=== PATIENT | female | born 1995 | race Caucasian/White ===

== ENCOUNTER 2017-04-23 23:41 | Emergency (ER) | payer SELFPAY ==
[2017-04-23] MEDS ORDERED: Phenazopyridine 200 MG Tab PO ONE (23:52)
[2017-04-23] MEDS ORDERED: Cephalexin 500 MG Cap PO ONE (23:52)
--- NOTE | 2017-04-23 23:52 | EDM.PDOC ---
ED HPI GENERAL MEDICAL PROBLEM - General Stated Complaint: PT HAS UTI Time Seen by Provider: 04/23/17 23:47 Source of Information: Reports: Patient History Limitations: Reports: No Limitations - History of Present Illness INITIAL COMMENTS - FREE TEXT/NARRATIVE: HISTORY AND PHYSICAL: History of present illness: 21-year-old female complaining of frequency urgency and dysuria. No fevers chills sweats or shaking chills. No flank pain. Denies pelvic pain she states she's never had a urinary tract infection before but she thinks she has one now patient is otherwise asymptomatic [] Review of systems: As per history of present illness and below otherwise all systems reviewed and negative. Past medical history: As per history of present illness and as reviewed below otherwise noncontributory. Surgical history: As per history of present illness and as reviewed below otherwise noncontributory. Social history: No reported history of drug or alcohol abuse. Family history: As per history of present illness and as reviewed below otherwise noncontributory. Physical exam: Well. Patient no acute distress benign abdomen and pelvis no CVA tenderness no clinical fever HEENT: Atraumatic, normocephalic, pupils reactive, negative for conjunctival pallor or scleral icterus, mucous membranes moist, throat clear, neck supple, nontender, trachea midline. Lungs: Clear to auscultation, breath sounds equal bilaterally, chest nontender. Heart: S1S2, regular, negative for clicks, rubs, or JVD. Abdomen: Soft, nondistended, nontender. Negative for masses or hepatosplenomegaly. Negative for costovertebral tenderness. Pelvis: Stable nontender. Genitourinary: Deferred. Rectal: Deferred. Extremities: Atraumatic, negative for cords or calf pain. Neurovascular unremarkable. Neuro: Awake, alert, oriented. Exam nonfocal. Diagnostics: [] Therapeutics: Keflex given by mouth] Impression: [UTI] Plan: [Signs and symptoms consistent with UTI. Clinical diagnosis. No evidence of pyelonephritis or systemic illness. Patient denies vaginal discharge or bleeding. She has an IUD in place. No further workup or treatment indicated. Thus of Keflex given in ED and prescription dispensed as well as peridium. Patient and mom agree with outpatient follow-up and strict return precautions given] Definitive disposition and diagnosis as appropriate pending reevaluation and review of above. Lower Back Pain Score (Numeric/FACES): 9 - Related Data Allergies Allergy/AdvReac Type Severity Reaction Status Date / Time No Known Allergies Allergy Verified 04/23/17 23:50 Home Meds: Home Meds Cephalexin [Keflex] 500 mg PO QID 5 Days 04/23/17 [Rx] Phenazopyridine HCl [Pyridium] 200 mg PO TID #6 tablet 04/23/17 [Rx] ED ROS GENERAL - Review of Systems Review Of Systems: See Below (History of present illness) ED EXAM, GENERAL - Physical Exam Exam: See Below (History of present illness) Course - Vital Signs Last Recorded V/S: Last Vital Signs Temp 36.4 C 04/23/17 23:46 Pulse 80 04/24/17 00:25 Resp 18 04/24/17 00:25 BP 121/73 04/24/17 00:25 Pulse Ox 98 04/24/17 00:25 - Orders/Labs/Meds Meds: Medications Discontinued Medications Generic Name Dose Route Start Last Admin Trade Name Moni PRN Reason Stop Dose Admin Cephalexin 500 mg 04/23/17 23:52 04/24/17 00:08 Keflex PO 04/23/17 23:53 500 mg ONETIME ONE Administration Phenazopyridine HCl 200 mg 04/23/17 23:52 04/24/17 00:08 Pyridium PO 04/23/17 23:53 200 mg ONETIME ONE Administration Departure - Departure Time of Disposition: 23:54 Disposition: Home, Self-Care 01 Condition: Good Clinical Impression: UTI (urinary tract infection), Dysuria - Discharge Information Prescriptions: Cephalexin [Keflex] 500 mg PO QID 5 Days Phenazopyridine HCl [Pyridium] 200 mg PO TID #6 tablet Instructions: Urinary Tract Infection, Adult, [id number] Referrals: PCP,None [Primary Care Provider] - Forms: ED Department Discharge Additional Instructions: You have a urinary tract infection based on your clinical symptoms. Frequency urgency, and pain with urinating, are classic symptoms of urine infection. As you have no fevers or fast heart rate in your not vomiting you have no clinical signs of kidney infection. Rest and drink plenty of fluids. Finish Keflex as prescribed. Take Pyridium for 6 doses as instructed. Peridium will help with the burning and discomfort of urinary tract infection. Follow-up with your DrRosalva in one to 2 days and return immediately for new severe or worsening symptoms which could represent treatment failure.
[2017-04-24 00:45] VITALS: BP 121/73
== END 2017-04-24 00:27 | disposition home or self-care (01) ==
LOC: MW.ED 23:41
DX: N39.0 Urinary tract infection, site not specified (principal)
CPT/HCPCS: 99283; A9270

== ENCOUNTER 2022-01-01 16:43 | Emergency (ER) | payer MEDICAID ==
[2022-01-01] MEDS ORDERED: Lidocaine 1% PF 2 ML SDV INJECT ONE (18:24)
[2022-01-01] MEDS ORDERED: Cephalexin 500 MG Cap PO ONE (18:25)
[2022-01-01] MEDS ORDERED: Diphtheria,Pertussis(Acell),Tetanus Vaccine 0.5 ML Syringe IM ONE (18:25)
[2022-01-01] MEDS ORDERED: traMADol 50 MG Tab PO ONE (18:36)
[2022-01-01] MEDS ORDERED: Sulfamethoxazole/Trimethoprim 800-160 MG Tab PO ONE (18:38)
[2022-01-01 19:11] VITALS: BP 124/86; PULSE 76
== END 2022-01-01 19:12 | disposition home or self-care (01) ==
LOC: MW.ED 16:43
DX: L73.9 Follicular disorder, unspecified (principal); L02.416 Cutaneous abscess of left lower limb
CPT/HCPCS: 10060; 99282; A9270

== ENCOUNTER 2022-06-16 16:16 | Emergency (ER) | payer MEDICAID ==
[2022-06-16] MEDS ORDERED: Lidocaine 1% PF 2 ML SDV INJECT ONE (18:05)
[2022-06-16] MEDS ORDERED: Diphtheria,Pertussis(Acell),Tetanus Vaccine 0.5 ML Syringe IM ONE (18:05)
[2022-06-16 18:36] VITALS: BP 127/61; PULSE 89
== END 2022-06-16 18:36 | disposition home or self-care (01) ==
LOC: MW.ED 16:16
DX: M79.5 Residual foreign body in soft tissue (principal); Z23 Encounter for immunization
CPT/HCPCS: 10120; 10121; 90471; 90715; 99282; 99283-25

== ENCOUNTER 2023-11-30 11:06 | Emergency (ER) | payer BC, MEDICAID, OTHER ==
[2023-11-30 11:18] LABS: BASE EXCESS VENOUS 0.3 (-2.0-3.0); BICARBONATE,VENOUS 23 mEq/L (23-28); PCO2 VENOUS 33 mmHG (41-51); PH,VENOUS 7.47 (7.31-7.41)
[2023-11-30 11:19] LABS: PO2 VENOUS < 30 mmHG
[2023-11-30 11:24] LABS: BASOPHILS ABSOLUTE AUTO 0.04 K/uL (0.00-0.20); BASOPHILS PERCENT AUTO 0.4 % (0.0-1.0); EOSINOPHILS PERCENT AUTO 0.9 % (0.0-6.0); HEMATOCRIT 37.8 % (37.0-47.0); HEMOGLOBIN 12.9 g/dL (12.0-16.0); IMMATURE GRAN ABSOLUTE AUTO 0.03 K/uL (0.00-0.05); IMMATURE GRAN PERCENT AUTO 0.3 % (0.0-0.4); LYMPHOCYTES ABSOLUTE AUTO 4.32 K/uL (1.00-4.80); MEAN CORPUSCULAR HEMOGLOBIN 30.3 pg (28.0-32.0); MEAN CORPUSCULAR HGB CONC 34.1 g/dL (32.0-36.0); MEAN CORPUSCULAR VOLUME 88.7 fL (83.0-99.0); MEAN PLATELET VOLUME 10.3 fL (9.4-12.3); MONOCYTES ABSOLUTE AUTO 0.76 K/uL (0.00-0.80); MONOCYTES PERCENT AUTO 6.9 % (0.0-8.0); NEUTROPHILS ABSOLUTE AUTO 5.82 K/uL (1.80-7.70); NEUTROPHILS PERCENT AUTO 52.5 % (41.0-71.0); PLATELET COUNT,PLT 323 K/uL (150-400); RED BLOOD CELL COUNT 4.26 M/uL (4.10-5.30); WHITE BLOOD CELL COUNT,WBC 11.07 K/uL (3.9-11.3)
[2023-11-30] MEDS: Adenosine 6 MG/2 ML SDV IVPUSH ONE (11:29)
[2023-11-30] MEDS: LORazepam 2 MG/ML SDV IVPUSH ONE (11:31)
[2023-11-30] MEDS: diphenhydrAMINE 50 MG/ML SDV IVPUSH ONE (11:32)
[2023-11-30] MEDS: EPINEPHrine 1 MG/1 ML Amp IM ONE (11:32)
[2023-11-30] MEDS: Sodium Chloride 0.9% 1,000 ML IV ONE ×2 (11:32)
[2023-11-30] MEDS: methylPREDNISolone Sodium Succinate 125 MG/2 ML SDV IVPUSH ONE (11:33)
[2023-11-30] MEDS: Adenosine 6 MG/2 ML SDV ONE ×2 (11:33)
[2023-11-30 11:53] LABS: A/G RATIO 1.2 (0.9-1.6); ALBUMIN 3.7 g/dL (3.4-5.0); BILIRUBIN TOTAL 0.4 mg/dL (0.2-1.0); CARBON DIOXIDE,CO2 21.6 mmol/L (21.0-32.0); CREATININE 0.9 mg/dL (0.6-1.0); EST CRCL DRUG DOSING (CG) 89.69 mL/min; POTASSIUM,K 4.3 mmol/L (3.5-5.1); PROTEIN TOTAL,TP 6.8 g/dL (6.4-8.2)
[2023-11-30 13:04] LABS: TSH ULTRASENSITIVE 2.54 uIU/mL (0.36-3.74)
[2023-11-30 13:41] VITALS: BP 116/76; PULSE 93
== END 2023-11-30 13:41 | disposition home or self-care (01) ==
LOC: MW.ED 11:06
DX: I47.10 Supraventricular tachycardia, unspecified (principal); Z79.899 Other long term (current) drug therapy
CPT/HCPCS: 36415; 71045; 80053; 82803; 83735; 84443; 84703; 85025; 93005; 96361; 96374; 96375; 99285; J0153; J2060; J7030; 93010; 99284

== ENCOUNTER 2023-12-13 05:36 | Emergency (ER) | payer OTHER ==
[2023-12-13 06:00] VITALS: BP 115/58; PULSE 84
[2023-12-13 06:04] LABS: BASOPHILS ABSOLUTE AUTO 0.02 K/uL (0.00-0.20); BASOPHILS PERCENT AUTO 0.2 % (0.0-1.0); EOSINOPHILS PERCENT AUTO 2.5 % (0.0-6.0); HEMATOCRIT 37.4 % (37.0-47.0); IMMATURE GRAN ABSOLUTE AUTO 0.01 K/uL (0.00-0.05); IMMATURE GRAN PERCENT AUTO 0.1 % (0.0-0.4); LYMPHOCYTES PERCENT AUTO 44.4 % (24.0-44.0); MEAN CORPUSCULAR HEMOGLOBIN 29.9 pg (28.0-32.0); MEAN CORPUSCULAR HGB CONC 34.8 g/dL (32.0-36.0); MEAN PLATELET VOLUME 10.1 fL (9.4-12.3); MONOCYTES ABSOLUTE AUTO 0.53 K/uL (0.00-0.80); MONOCYTES PERCENT AUTO 6.5 % (0.0-8.0); NEUTROPHILS ABSOLUTE AUTO 3.74 K/uL (1.80-7.70); NEUTROPHILS PERCENT AUTO 46.3 % (41.0-71.0); PLATELET COUNT,PLT 293 K/uL (150-400); RED BLOOD CELL COUNT 4.35 M/uL (4.10-5.30)
[2023-12-13 06:44] LABS: A/G RATIO 1.2 (0.9-1.6); ALANINE AMINOTRANSFERASE,ALT 16 IU/L (14-63); ALBUMIN 3.6 g/dL (3.4-5.0); ALKALINE PHOSPHATASE 50 U/L (46-116); ASPARTATE AMNIOTRANSFERASE,AST 12 IU/L (15-37); BILIRUBIN TOTAL 0.4 mg/dL (0.2-1.0); BLOOD UREA NITROGEN,BUN 14 mg/dL (7.0-18.0); CALCIUM 9.1 mg/dL (8.5-10.1); CARBON DIOXIDE,CO2 23.4 mmol/L (21.0-32.0); CHLORIDE,CL 106 mmol/L (98-107); CREATININE 0.8 mg/dL (0.6-1.0); EST CRCL DRUG DOSING (CG) 99.99 mL/min; GLUCOSE RANDOM 88 mg/dL (74-106); POTASSIUM,K 3.8 mmol/L (3.5-5.1); PROTEIN TOTAL,TP 6.5 g/dL (6.4-8.2); SODIUM,NA 141 mmol/L (136-145)
[2023-12-13 06:47] LABS: ESTIMATED GFR 102 mL/min (>60)
== END 2023-12-13 07:33 | disposition home or self-care (01) ==
LOC: MW.ED 05:36
DX: R00.0 Tachycardia, unspecified (principal); R06.02 Shortness of breath; R07.9 Chest pain, unspecified; Z75.8 Other problems related to medical facilities and other health care; Z79.899 Other long term (current) drug therapy
CPT/HCPCS: 36415; 71046; 71046-26; 80053; 84484; 85025; 85379; 93005; 93010; 99282; 99285

== ENCOUNTER 2024-01-23 16:12 | Emergency (ER) | payer OTHER ==
[2024-01-23] MEDS: Adenosine 6 MG/2 ML SDV IVPUSH ONE (16:20)
[2024-01-23] MEDS: Adenosine 6 MG/2 ML SDV ONE (16:35)
[2024-01-23 17:45] VITALS: BP 112/66; PULSE 91
== END 2024-01-23 17:38 | disposition home or self-care (01) ==
LOC: MW.ED 16:12
DX: I47.10 Supraventricular tachycardia, unspecified (principal); Z79.899 Other long term (current) drug therapy
CPT/HCPCS: 96374; 99284; J0153; 93010